=== PATIENT | female | born 1960 | race African-American/Black ===

== ENCOUNTER 2016-10-18 13:44 | Inpatient (IN) | payer OTHER ==
[~2016-10-18] VITALS: Ht 167.6 cm; Wt 62.7 kg
[~2016-10-18 13:44] MED LIST: ASPIR 8181 M1 PO; K-Dur PO; Lasix PO; Lopressor PO; Zestril,Prinivil PO
[2016-10-18 15:34] LABS: HEMATOCRIT 39.2 % (36.0-46.0); MCH 30.7 PG (29.0-34.0); MCHC 33.4 G/DL (30.0-36.0); MCV 91.8 FL (83-99); MEAN PLAT.VOLUME 9.8 uM^3 (9.5-12.4); PLATELET COUNT 228 K/uL (156-360); RBC DIS.WIDTH-CV 12.2 % (11.8-14.6); RBC DIS.WIDTH-SD 41.3 % (39-53); RED BLOOD COUNT 4.27 M/uL (3.80-5.20); WHITE BLOOD COUNT 5.8 K/uL (4.1-10.2)
[2016-10-18 15:42] LABS: CHLORIDE 100 mEq/L (99-109); POTASSIUM 3.8 mEq/L (3.7-5.4); SODIUM 140 mEq/L (136-147)
[2016-10-18 15:45] LABS: GLUCOSE 91 mg/dL (70-99)
[2016-10-18 15:46] LABS: ANION GAP 13 MEQ/L (2-14)
[2016-10-18 15:47] LABS: TOTAL BILIRUBIN 0.6 mg/dL (0.0-1.0)
[2016-10-18 15:48] LABS: ALKALINE PHOSPHATASE 81 IU/L (3-129); GFR ESTIMATE (CALCULATED) > 59 mL/min/
[2016-10-18 15:50] LABS: UREA NITROGEN (BUN) 16 mg/dL (9-23)
[2016-10-18 15:55] LABS: TROP-I INTERPRETATION NEGATIVE; TROPONIN-I 0.04 ng/mL (0.0-0.30)
[2016-10-18] MEDS ORDERED: LASIX40 MG PO (17:48)
[2016-10-18] MEDS ORDERED: PRINIVIL10 MG PO (17:49)
[2016-10-18] MEDS ORDERED: METOPROLOL TART25 MG PO (17:50)
[2016-10-18] MEDS ORDERED: K-DUR20 MEQ PO (17:51)
[2016-10-18 18:55] LABS: ADD MIUA? YES; BILIRUBIN NEGATIVE; BLOOD SMALL; COLOR YELLOW ((YELLOW)); GLUCOSE (STRIP) NEGATIVE; KETONES NEGATIVE; LEUKOCYTES NEGATIVE; NITRITE NEGATIVE; PROTEIN (STRIP) NEGATIVE; UROBILINOGEN 0.2 MG/DL (0.2-1.0)
[2016-10-18 18:58] LABS: BACTERIA NONE SEEN /HPF; EPITHELIAL CELLS RARE /HPF; MUCUS NONE SEEN /LPF; RED BLOOD CELLS 0-5 /HPF (0-5); UCUL ADDED? NO; WHITE BLOOD CELLS 0-5 /HPF (0-5)
[2016-10-18 21:07] VITALS: BP 122/67
[2016-10-19] VITALS: BP 116/53
[2016-10-19 04:32] VITALS: BP 133/69
[2016-10-19 08:03] VITALS: BP 123/71
[2016-10-19 11:27] VITALS: BP 134/72
[2016-10-19] MEDS ORDERED: NORVASC5 MG PO (12:01)
[2016-10-19] MEDS ORDERED: PREDNISONE5 MG PO (12:22)
[2016-10-19] MEDS ORDERED: BENADRYL25 MG PO (12:23)
[2016-10-19] MEDS ORDERED: PEPCID20 MG PO (12:26)
[2016-10-19 13:07] LABS: HDL CHOLESTEROL 99 MG/DL (Desirable>=50); LDL CHOLESTEROL 91 mg/dL (Desirable<100); NON-HDL CHOLESTEROL 106 mg/dL (Desirable<160); TOTAL CHOLESTEROL 205 mg/dL (Desirable<200); TRIGLYCERIDES 75 MG/DL (Normal: <150)
[2016-10-19] MEDS ORDERED: LIPITOR10 MG PO (14:01)
[2016-10-19 15:53] VITALS: BP 131/65
== END 2016-10-19 19:27 | disposition home or self-care (01) | DRG 916 ==
LOC: EME 13:44 → EDOF 19:15 → 5SOUTH 19:20 → EDOF 19:20 → ENRESERV 19:23 → 5SOUTH 20:48
PROVIDERS: Physician Assistant
DX: T78.3XXA Angioneurotic edema, initial encounter (principal); G45.9 Transient cerebral ischemic attack, unspecified; I47.2 Ventricular tachycardia; I27.2 Other secondary pulmonary hypertension; I08.1 Rheumatic disorders of both mitral and tricuspid valves; I42.9 Cardiomyopathy, unspecified; I50.9 Heart failure, unspecified; M79.602 Pain in left arm; M06.9 Rheumatoid arthritis, unspecified; M19.90 Unspecified osteoarthritis, unspecified site; F17.200 Nicotine dependence, unspecified, uncomplicated; R20.9 Unspecified disturbances of skin sensation; G43.909 Migraine, unspecified, not intractable, without status migrainosus; R29.700 NIHSS score 0; E05.00 Thyrotoxicosis with diffuse goiter without thyrotoxic crisis or storm; G93.89 Other specified disorders of brain; D64.9 Anemia, unspecified; I69.320 Aphasia following cerebral infarction; Z79.82 Long term (current) use of aspirin; Z88.6 Allergy status to analgesic agent; Z88.8 Allergy status to other drugs, medicaments and biological substances; Z79.899 Other long term (current) drug therapy
CPT/HCPCS: 70450; 70551; 80053; 80061; 81003; 84484; 85027; 93005; 99281; 99285; J1200; J1650; J2930; J7030; S0028

== ENCOUNTER 2017-06-21 17:21 | Emergency (ER) | payer OTHER ==
[~2017-06-21] VITALS: Ht 167.6 cm; Wt 62.8 kg
[~2017-06-21 17:21] MED LIST changes: +BENADRYL25 MG PO; +K-DUR20 MEQ PO; +LASIX40 MG PO; +LIPITOR10 MG PO; +METOPROLOL TART25 MG PO; +NORVASC5 MG PO; +PEPCID20 MG PO; +PREDNISONE5 MG PO; +PRINIVIL10 MG PO
[2017-06-21] MEDS ORDERED: PERCOCET 5/31 TABLET PO (19:13)
[2017-06-21] MEDS ORDERED: PREDNISONE50 MG PO (19:13)
[2017-06-21 19:34] LABS: HEMATOCRIT 38.3 % (36.0-46.0); HEMOGLOBIN 13.2 G/DL (11.9-15.5); MCH 32.4 PG (29.0-34.0); MCHC 34.5 G/DL (30.0-36.0); MCV 94.1 FL (83-99); PLATELET COUNT 181 K/uL (156-360); RBC DIS.WIDTH-CV 12.5 % (11.8-14.6); RBC DIS.WIDTH-SD 43.6 % (39-53); RED BLOOD COUNT 4.07 M/uL (3.80-5.20); WHITE BLOOD COUNT 9.4 K/uL (4.1-10.2)
[2017-06-21 19:56] LABS: C-REACTIVE PROTEIN 19.6 MG/L (0-10); CHLORIDE 106 MEQ/L (99-109); CREATININE 0.8 MG/DL (0.6-1.3); GFR ESTIMATE (CALCULATED) > 59 mL/min/; GLUCOSE 123 mg/dL (70-99); POTASSIUM 3.4 MEQ/L (3.7-5.4); SODIUM 138 MEQ/L (136-147); UREA NITROGEN (BUN) 11 mg/dL (9-23)
[2017-06-21 20:40] VITALS: BP 144/74
[2017-06-21 20:56] LABS: ERTH.SED.RATE 18 MM/HR (0-30)
== END 2017-06-21 20:40 | disposition home or self-care (01) ==
LOC: EME 17:21
PROVIDERS: Nurse Practitioner Family
DX: M06.9 Rheumatoid arthritis, unspecified (principal); M25.462 Effusion, left knee; Z88.5 Allergy status to narcotic agent
CPT/HCPCS: 73564; 80048; 85027; 85651; 86140; 99281; 99284; J3010; J7512